=== PATIENT | female | born 1940 | race Caucasian/White ===

== ENCOUNTER 2018-03-24 05:09 | Inpatient (IN) | payer OTHER | END 2018-03-25 14:32 | disposition home or self-care (01) | LOC: ER 05:09 → TELE 09:06 → TELE-CENTR 10:47 | DX: J18.9 Pneumonia, unspecified organism (principal); I10 Essential (primary) hypertension; E03.9 Hypothyroidism, unspecified; E78.5 Hyperlipidemia, unspecified; E11.9 Type 2 diabetes mellitus without complications ==

== ENCOUNTER 2018-08-07 15:13 | Emergency (ER) | payer OTHER ==
[~2018-08-07] VITALS: Ht 157.5 cm; Wt 94.3 kg
[~2018-08-07 15:13] MED LIST: ALBUAER3 IN; AMLO10TA12 PO; AMOX-263 PO; ASPI325T4 PO; ATOR1TAB PO; FURO20TA PO; LEVO25TA6 PO; LISI40TA PO; METF-489 PO; MIRA50TA OR; OMEP20TA PO; POTA1TAB61 PO; THIA100T10 PO
[2018-08-07 16:55] VITALS: BP 124/43
[2018-08-07] MEDS ORDERED: LIDOCAINE 1% HCL (LOCAL ANESTH.) INJ 20ML MDV IJ ONE (17:30)
[2018-08-07] MEDS ORDERED: BACITRACIN TOP OINT 1 UD PKG TOP ONE (18:15)
== END 2018-08-07 18:21 | disposition home or self-care (01) ==
LOC: ER 15:13
DX: S61.412A Laceration without foreign body of left hand, initial encounter (principal); E11.9 Type 2 diabetes mellitus without complications; I10 Essential (primary) hypertension; W26.9XXA Contact with unspecified sharp object(s), initial encounter; Y93.89 Activity, other specified; Y99.8 Other external cause status; Y92.89 Other specified places as the place of occurrence of the external cause
CPT/HCPCS: 12002; 82962; 99283; J2001

== ENCOUNTER 2021-12-28 16:21 | Emergency (ER) | payer OTHER ==
[~2021-12-28] VITALS: Ht 165.1 cm; Wt 84.0 kg
[~2021-12-28 16:21] MED LIST changes: +AMLO-496 PO; -AMLO10TA12 PO; +ATOR-47 PO; -ATOR1TAB PO; +FURO1TAB33 PO; -FURO20TA PO; -LISI40TA PO; +LISI40TA11 PO
[2021-12-28] MEDS ORDERED: cloNIDine HCL 0.1 MG TAB PO ONE (17:45)
[2021-12-28] MEDS: ACETAMINOPHEN 325 MG TAB PO ONE ×2 (17:45→18:44)
[2021-12-28] MEDS ORDERED: SODIUM CHLORIDE 0.9% 1,000 ML IV ONE (19:45)
[2021-12-28 21:07] VITALS: BP 120/50
== END 2021-12-28 21:26 | disposition home or self-care (01) ==
LOC: ER 16:21 → EDBD 16:21 → ER 20:55
DX: I10 Essential (primary) hypertension (principal); R51.9 Headache, unspecified; E11.9 Type 2 diabetes mellitus without complications; K21.9 Gastro-esophageal reflux disease without esophagitis; E78.5 Hyperlipidemia, unspecified
CPT/HCPCS: 93005; 96360; 99283; J7030